=== PATIENT | male | born 1985 | race Caucasian/White ===

== ENCOUNTER 2017-08-02 00:15 | Emergency (ER) | payer BC ==
[~2017-08-02] VITALS: Ht 188 cm; Wt 118.2 kg
[~2017-08-02 00:15] MED LIST: NORCO 325 MG-51 TAB PO; ZITHROMAX Z PA250 MG PO; ZYRTEC 10MG10 MG PO
[2017-08-02 00:21] VITALS: TEMP 97.2
[2017-08-02] MEDS ORDERED: AMOXICILLIN 8751 TAB PO (01:24)
[2017-08-02 01:35] VITALS: BP 133/67; PULSE 72
== END 2017-08-02 01:35 | disposition home or self-care (01) ==
LOC: COL.ER 00:15
DX: S01.511A Laceration without foreign body of lip, initial encounter (principal); W55.82XA Struck by other mammals, initial encounter; Y92.39 Other specified sports and athletic area as the place of occurrence of the external cause

== ENCOUNTER → 2017-08-10 | Emergency (ER) | payer BC ==
[~2017-08-10] MED LIST changes: +AMOXICILLIN 8751 TAB PO
[2017-08-10 19:14] VITALS: BP 131/81; PULSE 73; TEMP 98.6
== END ==
LOC: COL.ER 18:57
DX: Z48.02 Encounter for removal of sutures (principal)

== ENCOUNTER 2021-04-11 15:27 | Outpatient (CLI) | payer BC ==
[~2021-04-11] VITALS: Ht 188 cm; Wt 127.2 kg
[2021-04-11 15:25] VITALS: BP 122/76; PULSE 883; TEMP 98.3
[2021-04-11 15:40] VITALS: BP 126/81; PULSE 88
[2021-04-11 15:55] VITALS: BP 124/77; PULSE 82
[2021-04-11 16:10] VITALS: BP 112/74; PULSE 85
[2021-04-11 16:25] VITALS: BP 112/71; PULSE 81
[2021-04-11 16:40] VITALS: BP 101/57; PULSE 81
--- NOTE | 2021-04-11 17:05 | NUR ---
Pt tolerated infusion and 1 hr obs time without issue. INT Dc'd with catheter intact. Pt escorted out to ED entrance with steady gait.
== END 2021-04-17 16:19 ==
LOC: EUO 15:27
DX: U07.1 COVID-19 (principal); E66.01 Morbid (severe) obesity due to excess calories
CPT/HCPCS: M0243; Q0244